=== PATIENT | male | born 1970 | race Caucasian/White ===

== ENCOUNTER 2022-09-19 12:40 | Outpatient (REF) | payer OTHER, MEDICAID, SELFPAY ==
--- NOTE | ~2022-09-19 | XR_ITS ---
EXAMINATION: XR BILATERAL KNEES CLINICAL INFORMATION: Reason for Exam M25.561 - Pain in right knee COMPARISON: None TECHNIQUE: 1 views of the bilateral knees. 2 views of the left knee. FINDINGS: RIGHT KNEE: No acute fracture or dislocation. Joint spaces are maintained. Soft tissues are unremarkable. LEFT KNEE: No acute fracture or dislocation. Significant mineralization within the tibiofemoral joint suggesting chondrocalcinosis. Small patellofemoral compartment osteophytes. No joint effusion. Soft tissues are unremarkable. XR/XR knee standing BI IMPRESSION: * No acute osseous abnormality. * Mild degenerative changes of the left knee, with significant mineralization within the tibiofemoral joint space suggesting chondrocalcinosis.
--- NOTE | ~2022-09-19 | XR_ITS ---
EXAMINATION: XR BILATERAL KNEES CLINICAL INFORMATION: Reason for Exam M25.561 - Pain in right knee COMPARISON: None TECHNIQUE: 1 views of the bilateral knees. 2 views of the left knee. FINDINGS: RIGHT KNEE: No acute fracture or dislocation. Joint spaces are maintained. Soft tissues are unremarkable. LEFT KNEE: No acute fracture or dislocation. Significant mineralization within the tibiofemoral joint suggesting chondrocalcinosis. Small patellofemoral compartment osteophytes. No joint effusion. Soft tissues are unremarkable. XR/XR knee LT 2V IMPRESSION: * No acute osseous abnormality. * Mild degenerative changes of the left knee, with significant mineralization within the tibiofemoral joint space suggesting chondrocalcinosis.
== END 2022-09-19 12:41 | disposition home or self-care (01) ==
LOC: HO.HOSX 12:40
PROVIDERS: Visit Provider Physician Assistant
DX: M17.12 Unilateral primary osteoarthritis, left knee (principal); M25.561 Pain in right knee
CPT/HCPCS: 20610; 73560; 73565; 99202; J1040

== ENCOUNTER 2022-10-17 11:55 | Outpatient (REF) | payer OTHER, SELFPAY | END 2022-10-17 11:56 | disposition home or self-care (01) | LOC: HO.HOSX 11:55 | PROVIDERS: Visit Provider Physician Assistant | DX: Z13.89 Encounter for screening for other disorder (principal) ==

== ENCOUNTER 2023-01-14 12:48 | Outpatient (REF) | payer OTHER, SELFPAY ==
--- NOTE | ~2023-01-14 | XR_ITS ---
EXAMINATION: XR SHOULDER, RIGHT CLINICAL INFORMATION: Pain in right shoulder COMPARISON: None available. TECHNIQUE: AP neutral, scapular Y, and axillary views of the right shoulder. FINDINGS: The bones are slightly demineralized. The bones are intact. No fracture. No dislocation. There is superior subluxation of the humeral head with respect to the glenoid consistent with chronic rotator cuff tear. A small osteophyte extends off the humeral head. There is decrease in the subacromial space which can be seen with impingement syndrome. The common clavicular and glenohumeral joint spaces are within normal limits. No abnormal soft tissue calcifications. Bilateral distraction rods project over the thoracic spine. XR/XR shoulder RT min 2V IMPRESSION: 1. Chronic rotator cuff tear. 2. Decreased subacromial space which can be seen with impingement syndrome. 3. No acute bony abnormality.
== END 2023-01-14 12:49 | disposition home or self-care (01) ==
LOC: HO.HOSX 12:48
PROVIDERS: Visit Provider Physician Assistant
DX: M25.511 Pain in right shoulder (principal); M12.811 Other specific arthropathies, not elsewhere classified, right shoulder; Z79.899 Other long term (current) drug therapy
CPT/HCPCS: 73030

== ENCOUNTER 2023-01-14 13:38 | Outpatient (AMB) | payer OTHER, SELFPAY ==
--- NOTE | 2023-01-14 14:02 | MHC.OFFVIS ---
Intake Vital Signs 01/14/23 14:05 Height 5 ft 8 in Weight 150 lb BMI 22.8 Intake Visit Reasons: New PRob- pain in the right shoulder Intake Note: Moisés zamarripa 53 year old male presents today for an evaluation of right shoulder pain. Patient reports pain presented about 2 years ago that has recently been getting worse. Hx of right RTC surgery about 5 years ago in [place]. Denies any recent injury. He has constant pain that will radiate down his arm. Numbness and tingling but states hx of carpal tunnel in right hand. Finds some relief with aspirin and salonpas patches. Allergies No Known Allergies Allergy (Verified 01/14/23 14:08) Medication List - Last Reconciled 01/14/23 by Candace Calloway PA-C bupropion HCl 150 mg PO QAM folic acid 1 mg PO DAILY furosemide 40 mg PO DAILY pantoprazole 40 mg PO BID rivaroxaban (Xarelto) 20 mg PO DAILY thiamine HCl (vitamin B1) 100 mg PO DAILY HPI New PRob- pain in the right shoulder HPI Details 53-year-old male who presents to the office today for evaluation of right shoulder pain for about 2 years. He states he has constant worsening right shoulder pain which radiates down to his arm. He also c/o numbness and tingling in his right hand which he attributes to his history of CTS. He finds mild relief with aspirin and Salonpas patches. He denies sustaining any recent injury. He has a history of right RTC surgery about 5 years ago in [place]. He works at a construction site. [facility] Medical History DVT (deep venous thrombosis) Factor 5 Leiden mutation, heterozygous Social History Patient Tobacco Use Status: Former Tobacco user Current occupational status: disabled Review of Systems Const All systems reviewed & are unremarkable except as noted in HPI and below Physical Exam Vital Signs: BMI result Body Mass Index 22.8 Extrem Other: Right shoulder normal to inspection. Forward flexion to 40, external rotation to 15. He does have some weakness with RTC strength testing with primary activation of periscapular region. NVI. Results Reviewed Results Reviewed: Xrays were obtained in the office today and personally reviewed by me of the left shoulder show migration of the humeral head Assessment & Plan Assessment & Plan (1) Rotator cuff arthropathy of right shoulder: Code(s): M12.811 - Other specific arthropathies, not elsewhere classified, right shoulder Plan We discussed options and because of his significant limited motion and history of RTC repair, we are going to order and MRI to further evaluation of the integrity of RTC. I did briefly explain to him some treatment options which could potentially include surgical intervention. He is content with this plan and will see us back once the scan is complete. Orders: Orders XR shoulder RT min 2V Today M25.511 - Pain in right shoulder MR shoulder RT wo con Today M12.811 - Other specific arthropathies, not elsewhere classified, right shoulder Patient Instructions: Scribed for Candace Calloway PA-C, by Rao Baker medical instrument cable fabricator, on 01/14/2023 at 1:30 PM EST. Candace Khanna PA-C, have personally reviewed and agree with the information entered by the scribe. Coding Level of Care Code Est Pt Level 3 (47124) Diagnoses Rotator cuff arthropathy of right shoulder M12.811
[2023-01-14 14:05] VITALS: BMI 22.8
== END 2023-01-14 14:42 | disposition home or self-care (01) ==
PROVIDERS: PCP Hospitalist; Visit Provider Physician Assistant
DX: M12.811 Other specific arthropathies, not elsewhere classified, right shoulder (principal)
CPT/HCPCS: 99214

== ENCOUNTER 2023-02-17 11:30 | Outpatient (RCR) | payer OTHER, SELFPAY | END 2023-03-25 13:42 | disposition home or self-care (01) | LOC: HO.OT 11:30 | PROVIDERS: PCP Hospitalist; Visit Provider Hospitalist | DX: G56.01 Carpal tunnel syndrome, right upper limb (principal) | CPT/HCPCS: 97110; 97165 ==

== ENCOUNTER 2023-03-17 18:01 | Outpatient (REF) | payer OTHER, SELFPAY ==
--- NOTE | ~2023-03-17 | MR_ITS ---
EXAMINATION: MR SHOULDER WITHOUT CONTRAST, RIGHT CLINICAL INFORMATION: M12.811 - Other specific arthropathies, not elsewhere classified, right. Right shoulder pain. COMPARISON: Radiograph dated 01/14/2023. TECHNIQUE: MRI of the shoulder without contrast was performed on a high-field scanner. FINDINGS: ROTATOR CUFF: Soft tissue anchors at the greater tuberosity are consistent with prior rotator cuff repair. There is a recurrent, complete, full-thickness, full-width tear of the supraspinatus and infraspinatus tendons measuring approximately 4.6 cm AP. The tendons are retracted up to 5.8 cm medially, just medial to the glenoid fossa. There is [id number] associated atrophy of the supraspinatus and infraspinatus muscles with grade 3 fatty replacement. A high-grade partial-thickness articular-sided tear of the subscapularis tendon measures approximately 3 x 1.6 cm (longitudinal by craniocaudal), sparing a thin band of intact bursal-sided fibers as well as a few inferior fibers at the lesser tuberosity insertion. This tear involves greater than two-thirds of the tendon cross-section and extends through the biceps duc at the humeral attachment. No significant subscapularis muscle atrophy. Teres minor tendon is intact, though there is mwgb-[id number] teres minor muscle atrophy and grade 2 fatty replacement. Deltoid muscle appears relatively well preserved. BICEPS: There is medial subluxation of the biceps tendon at the groove entrance with associated tendinosis and partial tearing. CORACOACROMIAL ARCH: The undersurface of the acromion is remodeled, potentially the result of a prior acromioplasty. No appreciable superimposed subacromial spur. [id number] acromioclavicular osteoarthritis. LABRUM/CAPSULE: The glenoid labrum is degenerated superiorly. There is a degenerative tear of the anterosuperior labrum. Axillary pouch is unremarkable. GLENOHUMERAL JOINT/MARROW: Moderate-sized marginal osteophytes at the humeral head and, to a lesser extent, the glenoid. Nonuniform chondral thinning is most pronounced at the glenoid superiorly with probable chronic osseous fragmentation at the superior glenoid rim. There is cephalad subluxation of the humeral head with moderate nonuniform chondral thinning, most pronounced superomedially. Subcortical cystic change and edema signal are present at the greater tuberosity. MR/MR shoulder RT wo con IMPRESSION: 1. Recurrent, complete, full-thickness tear of the supraspinatus and infraspinatus tendons with iedutnfu-[id number] associated muscle atrophy and fatty replacement. 2. High-grade partial-thickness articular-sided tear of the subscapularis tendon involving greater than two-thirds of the tendon cross-section. 3. Medial subluxation of the biceps tendon with associated tendinosis and partial tearing. 4. Nxjs-jn-pcwnplnl glenohumeral and acromioclavicular osteoarthritis.
== END 2023-03-17 18:02 | disposition home or self-care (01) ==
LOC: HO.MRI 18:01
PROVIDERS: PCP Hospitalist; Visit Provider Physician Assistant
DX: M12.811 Other specific arthropathies, not elsewhere classified, right shoulder (principal)
CPT/HCPCS: 73221

== ENCOUNTER 2023-05-18 11:12 | Outpatient (AMB) | payer OTHER, SELFPAY ==
--- NOTE | 2023-05-18 11:15 | MHC.OFFVIS ---
Intake Vital Signs 05/18/23 11:29 Height 5 ft 8 in Weight 159 lb 2 oz BMI 24.2 BP 108/61 Blood Pressure Location Lt brachial Position Sitting Pulse 97 Intake Visit Reasons: Re-Exc malignant melanoma left tricep Intake Note: This patient presents for an assessment for re-excision malignant melanoma left triceps. Pt c/o; had a lesion on the left upper arm removed a couple months ago by Dermatology and was refer here, unsure why Educational Fundraising Director Required: No Accompanied by: Self / Same As Patient Allergies No Known Allergies Allergy (Verified 05/18/23 11:24) Medication List - Last Reconciled 05/20/23 by Boston Wing MD bupropion HCl 150 mg PO QAM folic acid 1 mg PO DAILY furosemide 40 mg PO DAILY pantoprazole 40 mg PO BID rivaroxaban (Xarelto) 20 mg PO DAILY thiamine HCl (vitamin B1) 100 mg PO DAILY HPI Re-Exc malignant melanoma left tricep HPI Details 53M referred for reexcision of a melanoma. He had undergone shave biopsy of a skin lesion last December, the left triceps area and this was a melanoma in Situ. He had been referred by his director medical science for wider excision which she under went last March, . 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 His director medical science stated that the excised area was not the same area that had been biopsied so he was referred to me for wider excision of the correct site. The patient is uncertain as to why he is being referred to me. He had been seeing a surgeon for this same lesion up until April, but he says that he states that his health insurance does not cover that surgeon anymore. He says that the excision site has healed very well. [facility] Medical History Melanoma in situ DVT (deep venous thrombosis) Factor 5 Leiden mutation, heterozygous Surgical History History of left knee surgery History of arthroplasty of right shoulder History of laparoscopic cholecystectomy History of colonoscopy History of back surgery Family History Mother Breast cancer Intestines cancer Social History Patient Tobacco Use Status: Former Tobacco user Current occupational status: disabled Review of Systems Const Denies chills and Denies fever(s) Card Denies chest pain, Denies dyspnea and Denies dyspnea on exertion Resp Denies cough, Denies dyspnea and Denies dyspnea on exertion GI Denies hematochezia and Denies change in bowel habits Denies hematuria and Denies difficulty urinating Musc Denies back pain and Denies limited range of motion Neuro Denies focal weakness and Denies convulsions Psych Denies depression and Denies mood swings Physical Exam Vital Signs: Last Vital Signs Pulse 97 05/18/23 11:29 BP 108/61 05/18/23 11:29 BMI result Body Mass Index 24.2 Const General: comfortable and no acute distress Orientation/consciousness: patient oriented x3 Neck Neck: Yes no lymphadenopathy Resp Auscultation: clear to auscultation bilaterally Cardio Rhythm: regular rhythm GI Palpation (GI): Soft to palpation, nontender and no guarding Neuro General: patient oriented x3 Extrem Other: There is note of a surgical scar that is well-healed on the triceps area of the left upper arm, no lesions seen on this area, no induration Assessment & Plan Assessment & Plan (1) Melanoma in situ: Code(s): D03.9 - Melanoma in situ, unspecified Plan: I was able to get hold of his pathologist in [place]. Apparently, he had a shave biopsy of skin lesion on the left distal triceps area last December 2022. The path report showed a malignant melanoma in Situ. He was referred to a surgeon to have wider excision but he had no showed at some point. He eventually was able to have excision last April, but the path report showed lichenoid actinic keratosis with no melanocytic proliferation. The director medical science felt that the excised area was not where the biopsy site was. He was therefore referred to me for excision of the biopsy site. I explained to him the technique of excision. I reviewed the risks including but not limited to bleeding, infections and poor healing. This will be done under monitored anesthesia care so that a wider excision can be. We will get at least a 5-10 mm margins around the biopsy site. I am uncertain as to where the exact biopsy site is so will be marked by his director medical science today before the date of the surgery He understands the plan. He initially stated that he wants to do the in the springtime as he plans to leave next week on [place] I told him that I would recommend having this done before that and as well as possible as this is a melanoma in situ and there is risk of progression and metastasis. Coding Level of Care Code New Pt Level 4 (22828) Diagnoses Melanoma in situ D03.9
[2023-05-18 11:29] VITALS: BP 108/61; PULSE 97; BMI 24.2
== END 2023-05-18 11:36 | disposition home or self-care (01) ==
PROVIDERS: PCP Hospitalist; Referring Provider Dermatology; Visit Provider Surgery
DX: D03.9 Melanoma in situ, unspecified (principal)
CPT/HCPCS: 99204; 99214

== ENCOUNTER → 2023-05-18 11:12 | Outpatient (BNVA) | payer OTHER, MEDICAID, SELFPAY | PROVIDERS: PCP Hospitalist; Referring Provider Dermatology; Visit Provider Surgery | DX: D03.9 Melanoma in situ, unspecified (principal) | CPT/HCPCS: 99202 ==

== ENCOUNTER 2023-05-22 07:50 | Day surgery (SDC) | payer OTHER, MEDICAID, SELFPAY ==
--- NOTE | 2023-05-21 11:51 | P.CONAN_ITS ---
Documented by User: Marci Clements NP 05/21/23 11:52 HPI - Anesthesia Eval Consult details Narrative: 53yo M for Left Wide Excision of melanoma left arm Xarelto for DVT, Factor V PMFSH Active Problems Active Problems: All Active Problems (Updated 05/18/23 @ 16:32 by Boston Wing MD) Melanoma in situ (Acute) Rotator cuff arthropathy of right shoulder (Acute) Osteoarthritis of left knee (Acute) Past Medical History Medical History Melanoma in situ DVT (deep venous thrombosis) Factor 5 Leiden mutation, heterozygous Family History Family History Mother Breast cancer Intestines cancer Surgical History Surgical History History of left knee surgery History of arthroplasty of right shoulder History of laparoscopic cholecystectomy History of colonoscopy History of back surgery Social History Social History Patient Tobacco Use Status: Former Tobacco user Advance Directives: No Advance Directives Information Provided: Yes Current occupational status: disabled Meds Allergies Allergy/AdvReac Type Severity Reaction Status Date / Time No Known Allergies Allergy Verified 05/18/23 11:24 Home Medications Medication Instructions Recorded Confirmed Last Taken Type bupropion HCl 150 mg 24 hr tablet, 150 mg PO QAM 09/19/22 05/20/23 Unknown History extended release folic acid 1 mg tablet 1 mg PO DAILY 09/19/22 05/20/23 Unknown History furosemide 40 mg tablet 40 mg PO DAILY 09/19/22 05/20/23 Unknown History rivaroxaban 20 mg tablet (Xarelto) 20 mg PO DAILY 09/19/22 05/20/23 Unknown History thiamine HCl (vitamin B1) 100 mg 100 mg PO DAILY 09/19/22 05/20/23 Unknown History tablet pantoprazole 40 mg tablet,delayed 40 mg PO BID 01/14/23 05/20/23 Unknown History release Assessment and Plan Assessment Anesthesia Assessment: Chart Reviewed Documented by User: Philip Restrepo MD 05/22/23 08:18 [facility] Past Medical History Medical History Melanoma in situ DVT (deep venous thrombosis) Factor 5 Leiden mutation, heterozygous Family History Family History Mother Breast cancer Intestines cancer Family history of problems with anesthesia: No Surgical History Surgical History History of left knee surgery History of arthroplasty of right shoulder History of laparoscopic cholecystectomy History of colonoscopy History of back surgery History of Problems with Anesthesia: No Social History Social History Patient Tobacco Use Status: Former Tobacco user Advance Directives: No Advance Directives Information Provided: Yes Current occupational status: disabled Meds Allergies Allergy/AdvReac Type Severity Reaction Status Date / Time No Known Allergies Allergy Verified 05/18/23 11:24 Home Medications Medication Instructions Recorded Confirmed Last Taken Type bupropion HCl 150 mg 24 hr tablet, 150 mg PO QAM 09/19/22 05/20/23 Unknown History extended release folic acid 1 mg tablet 1 mg PO DAILY 09/19/22 05/20/23 Unknown History furosemide 40 mg tablet 40 mg PO DAILY 09/19/22 05/20/23 Unknown History rivaroxaban 20 mg tablet (Xarelto) 20 mg PO DAILY 09/19/22 05/20/23 Unknown History thiamine HCl (vitamin B1) 100 mg 100 mg PO DAILY 09/19/22 05/20/23 Unknown History tablet pantoprazole 40 mg tablet,delayed 40 mg PO BID 01/14/23 05/20/23 Unknown History release Exam Airway Mallampati Class: II TM Dist: >3cm Neck ROM: Limited Heart: rrr Lungs: cta Assessment and Plan Assessment Anesthesia Assessment: Anesthesia Plan Discussed Final Anesthetic Review Family History of Problems with Anesthesia: No History of Problems with Anesthesia: No NPO: Yes ASA Class: II Final Preanesthetic Review: No Changes in Pt Med Stat, Meds/Allgs Chart Reviewed, Consent Obtained/Reviewed and Anes Risks/Benef Reviewed Patient Risk: Intermediate Procedure Risk: Low Anesthetic Plan Anesthetic Plan: MAC: and Agree w/ Assess. and Plan Disposition: Standard PACU
[2023-05-22 09:17] VITALS: BMI 23.9
--- NOTE | 2023-05-22 09:53 | MHC.SHP ---
Pre-Procedural Eval Section A Date of Service: 05/22/23 The patient is an INPATIENT: No Changes since office visit: No Cold of Flu in the past 2 weeks, No New Medical Problems, No Changes in Medication and No Patient answered all questions The History & Physical has been completed within 30 days and I have reviewed it.: Yes Section B Chief Complaint: Melanoma in situ, unspecified Allergies: Allergies Allergy/AdvReac Type Severity Reaction Status Date / Time No Known Allergies Allergy Verified 05/18/23 11:24 Plan I have reviewed the history and physical and performed a pertinent physical examination on my patient. No changes have occurred unless specified. Time Spent With Patient Time: Total time managing care of this patient today ____ minutes.
--- NOTE | 2023-05-22 11:06 | P.OP_ITS ---
Operative Note Operative Note Date of Service: 05/22/23 Narrative: Preop diagnosis: Melanoma in Situ, left upper arm Postop diagnosis: The same Procedure: Wide excision, melanoma in Situ, left upper arm Surgeon: Boston Wing MD assistant gm of content & delivery: SRIDHAR Hernandez The patient is a 53-year-old male who had a shave biopsy of lesion in the left upper arm last December, with this manager system. This turned out to be a melanoma in Situ. Was referred to a surgeon for wider excision. This was not done until April,. However, according to the manager system, the shave biopsy site was not the 1 that had been excised by the surgeons so he was referred to me for wide excision of the correct area. This area was marked by the manager system yesterday He understood the technique of the planned procedure as well as the risks, benefits, and alternatives He was brought to the operating room. He was placed in supine position, slightly rotated to the right. The left arm was pulled to the right as well to expose the posterior lateral aspect of the upper arm where the area had been marked by the manager system . A surgical time-out had been done. The patient received cefazolin 2 g IV preoperatively. This area was prepped and draped. Lidocaine 1% was used for local anesthesia. I am made an elliptical incision around this marked area using blade 15. I maintain a 5-10 mm margin of skin around the biopsy site. This was carried down with electrocautery through the full-thickness of the skin and subcutaneous fat. We excised subcutaneous fat just above the level of the fascia of the muscle. I applied sutures to orient the specimen at the proximal and medial margins The excised area was about 7 cm by 4 cm in dimension and included the skin and subcutaneous fat . I used electrocautery from his stasis. Once hemostasis was confirmed, I proceeded to then apply ice interrupted Polysorb 3-0 sutures to the subcutaneous layer. The skin was closed with simple interrupted nylon 3-0 sutures. The area was then infiltrated with Marcaine 0.5% for postop analgesia. Dressings were applied. The upper arm was wrapped with Mike roll. The procedure was then completed The patient tolerated procedure well. There were no immediate complications. Initial and final counts of sponges and instruments were correct. Estimated blood loss was about 5 cc The patient was then transferred to the recovery room with stable vital signs Primary Cutaneous Melanoma Original Breslow thickness of the lesion: Melanoma in situ (MIS) Clinical margin from the edge of the lesion or the prior excision scar: Mohs micrographic surgery with ___cm initial margin Depth down to the fascia; if not down to the fascia, then document why: Yes General Surg. - Synoptic Notes Primary Cutaneous Melanoma Original Breslow thickness of the lesion: Melanoma in situ (MIS) Clinical margin from the edge of the lesion or the prior excision scar: Mohs micrographic surgery with ___cm initial margin Depth down to the fascia; if not down to the fascia, then document why: Yes
[2023-05-22 11:16] VITALS: BP 121/75; PULSE 81; RESP 16; TEMP 36.6; O2SAT 99
[2023-05-22 11:30] VITALS: BP 129/78; PULSE 79; RESP 16; O2SAT 98
[2023-05-22 11:45] VITALS: BP 119/73; PULSE 78; RESP 16; O2SAT 99
[2023-05-22 12:00] VITALS: BP 112/76; PULSE 77; RESP 16; TEMP 37.1; O2SAT 96
== END 2023-05-22 12:25 | disposition home or self-care (01) ==
PROVIDERS: PCP Hospitalist; Visit Provider Surgery
PROC: (CPT 24071; principal; 2023-05-22 10:10)
DX: D03.9 Melanoma in situ, unspecified (principal); D68.51 Activated protein C resistance; Z86.718 Personal history of other venous thrombosis and embolism; Z87.891 Personal history of nicotine dependence; Z79.01 Long term (current) use of anticoagulants; Z79.899 Other long term (current) drug therapy
CPT/HCPCS: 24071; 88304; 88305; 88342; J0690; J1100; J2250; J2405; J2704; J2795

== ENCOUNTER → 2023-05-22 07:50 | Outpatient (BNV) | payer OTHER, SELFPAY | PROVIDERS: PCP Hospitalist; Visit Provider Surgery | DX: D22.62 Melanocytic nevi of left upper limb, including shoulder (principal) | CPT/HCPCS: 24071 ==

== ENCOUNTER 2024-03-02 15:21 | Outpatient (REF) | payer MEDICARE, SELFPAY ==
[2024-03-02 17:37] LABS: Anion Gap 14 (12-20); Blood Urea Nitrogen 9 mg/dL (9-16); Carbon Dioxide 29 mmol/L (22-29); Chloride 102 mmol/L (96-108); Estimated Glomerular Filt Rate > 60; Glucose Random 79 mg/dL (60-115); Potassium 3.5 mmol/L (3.3-5.1); Sodium 141 mmol/L (135-145)
[2024-03-02 18:00] LABS: Erythrocyte Sedimentation Rate 1 MM/HR (0-15)
[2024-03-03 05:41] LABS: HIV AB/AG Nonreactive (Nonreactive); HIV Num 1 0.05 S/CO (0.00-0.99); Syphilis Screen Nonreactive (Nonreactive)
[2024-03-03 16:53] LABS: Lyme Abs Screen <0.90 index
[2024-03-03 20:29] LABS: IgA 313 mg/dL (47-310); IgG 852 mg/dL (600-1640); IgM 41 mg/dL (50-300)
[2024-03-04 11:14] LABS: Anti Nuclear Antibody Screen NEGATIVE (NEGATIVE)
== END 2024-03-02 15:22 | disposition home or self-care (01) ==
LOC: HO.LAB 15:21
PROVIDERS: PCP Hospitalist; Visit Provider Psychiatry & Neurology Neurology
DX: G62.9 Polyneuropathy, unspecified (principal)
CPT/HCPCS: 36415; 80048; 82784; 85652; 86038; 86334; 86617; 86618; 86780; 87389

== ENCOUNTER → 2024-04-15 09:23 | Day surgery (SDC) | payer MEDICARE, SELFPAY ==
[2024-04-15 09:54] VITALS: BMI 23.7
--- NOTE | 2024-04-15 10:09 | PC.NURSE ---
Pt disclosed on intake that he was not instructed to stop his Xarelto. Louie Barrientos was notified and came to bedside to instruct patient that he will need to reschedule.
== END ==
LOC: HO.SSS 09:24
PROVIDERS: PCP Hospitalist; Visit Provider Psychiatry & Neurology Neurology
DX: G61.81 Chronic inflammatory demyelinating polyneuritis (principal); Z53.09 Procedure and treatment not carried out because of other contraindication; Z79.01 Long term (current) use of anticoagulants

== ENCOUNTER → 2024-04-20 11:27 | Day surgery (SDC) | payer MEDICARE, SELFPAY ==
[2024-04-20 11:55] VITALS: BP 110/64; PULSE 68; RESP 15; TEMP 36.4; O2SAT 97
[2024-04-20 11:58] VITALS: BMI 23.3
== END ==
LOC: HO.SSS 11:27
PROVIDERS: Physician Assistant Surgical; PCP Hospitalist; Visit Provider Psychiatry & Neurology Neurology
PROC: 009U3ZZ Drainage of Spinal Canal, Percutaneous Approach (ICD-10-PCS; CPT 62270; principal; 2024-04-20 13:00)
DX: G61.81 Chronic inflammatory demyelinating polyneuritis (principal); Z53.09 Procedure and treatment not carried out because of other contraindication; Z79.01 Long term (current) use of anticoagulants

== ENCOUNTER 2024-04-22 11:53 | Day surgery (SDC) | payer MEDICARE, SELFPAY ==
--- NOTE | ~2024-04-22 | FL_ITS ---
FLUOROSCOPIC LUMBAR PUNCTURE Indication: Chronic inflammatory demyelinating polyneuropathy Risks and benefits and possible complications were discussed with the patient and the consent form was signed. Patient was placed prone on the fluoroscopy table. The back was prepped and draped in routine sterile fashion. Betadine was used as a skin antiseptic. Utilizing fluoroscopic guidance, the L5-S1 interlaminar space was accessed with a 22 gague Danisha spinal needle and clear CSF fluid obtained. Opening pressure was 32 cm H2O in the prone position. 8 cc of fluid was sent for analysis. The needle was removed without immediate complications. Total fluoroscopy time: 0.6 min FL/FL guided lumbar puncture LP Impression: Successful fluoroscopic guided lumbar puncture at L5-S1. Opening pressure was 32 cm H2O in the prone position. This procedure was performed by Dick Barrientos PA-C and supervised by Dr. Cardoso. Electronically signed by: Chon Cardoso MD 04/22/2024 04:01 PM [facility]
[2024-04-22 12:11] VITALS: BP 131/70; PULSE 74; RESP 18; TEMP 37; O2SAT 97; BMI 23.4
[2024-04-22 14:02] VITALS: BP 119/73; PULSE 75; RESP 16; TEMP 36.2; O2SAT 95
[2024-04-22 14:13] VITALS: BP 148/86; PULSE 81; RESP 16
[2024-04-22 14:37] LABS: CSF Appearance Clear, Colorless; CSF Tube # 3
[2024-04-22 14:45] VITALS: BP 136/84; PULSE 71; RESP 16; TEMP 36.3; O2SAT 96
[2024-04-22 14:57] LABS: Oligoclonal Serum Yes
[2024-04-22 15:00] LABS: Glucose CSF 69 mg/dL; Total Protein CSF 61.3 mg/dL (15-45)
[2024-04-22 16:20] LABS: Appearance CSF CLEAR; CSF Tube # 1; Color CSF COLORLESS
[2024-04-22 16:26] LABS: CSF Monos 50 %; Lymphocytes CSF 50 %; Red Blood Cell CSF 7 MM*3; White Blood Cell CSF 1 MM*3
[2024-04-22 16:35] LABS: Appearance CSF CLEAR; CSF Tube # 4
[2024-04-22 16:36] LABS: Color CSF COLORLESS; Red Blood Cell CSF 0 MM*3; White Blood Cell CSF 0 MM*3
[2024-04-26 21:58] LABS: Albumin, CSF 39.5 mg/dL (8.0-42.0); IgG 558 mg/dL (600-1640); IgG Synthesis Rate 4.3 mg/24 h (-9.9-3.3); IgG, CSF 3.7 mg/dL (0.8-7.7)
[2024-04-27 19:19] LABS: Oligoclonal Banding Absent (Absent)
--- OUTSIDE RECORDS SUMMARY | 2024-04-29 11:54 | XMS_ITS ---
Author Organization [facility] Address [address] [facility] [address] [place] [address] Care Team Providers Care Visual Merchandiser Name Role Phone MANPREET LORENZO Primary Care Provider Curtis Quinn Unavailable [phone] REASON FOR VISIT [facility] follow-up hospitalization Medications Medication SIG (Take, Route, Frequency, Duration) Notes Start Date End Date Status predniSONE 20 MG 1 tablet Orally Once a day for 7 days 04/19/2024 Active tiZANidine HCl 4 MG 1 tablet at bedtime as needed Orally Once a day for 30 days 04/19/2024 Active buPROPion HCl ER (XL) 150 MG 1 tablet in the morning Orally Once a day for 90 days Active Mirtazapine 7.5 MG 1 tablets at bedtime Orally Once a day for 30 days 03/22/2024 Active ARIPiprazole 20 MG TAKE 1 TABLET BY SABRINA TH EVERY DAY FOR 30 DAYS for 90 Active Lovenox 120 MG/0.8ML Inject subcutaneous ly Once a day for 30 days 01/22/2024 Not-Takin g Furosemide 40 MG TAKE 1 TABLET BY SABRINA TH EVERY DAY FOR 30 DAYS for 90 Active Pantoprazole Sodium 40 MG TAKE 1 TABLET BY MOUTH TWICE A DAY FOR 30 DAYS for 90 days Active Osteo Bi-Flex Joint Shield Active Gabapentin 600 MG 1 capsule Orally twi ce a day for 90 days 01/28/2023 Active Xarelto 20 MG 1 tablet with food O rally Once a day Active Lovenox Not-Taking Problems Problem Type SNOMED Code ICD Code Onset Dates Problem Status W/U Status Risk Notes Problem 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 vein (I82.531) Active confirmed Problem Sciatica (28278955) Sciatica of right side (M54.31) Active confirmed Vital Signs Temperature 98.4 degrees Fahrenheit 04/19/20 24 Oximetry 97 % 04/19/2024 Heart Rate 67 /min 04/19/2024 Blood pressure systolic 120 mm Hg 04/19/20 24 Blood pressure diastolic 80 mm Hg 024 Weight 155.5 lbs 04/19/2024 BMI 23.64 kg/m2 04/19/2024 Height 68 in 04/19/2024 Encounters Encounter Location Date Provider Diagnosis [facility] [address] [address] 04/19/2024 Curtis Quinn 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 vein I82.531 and Sciatica of right side M54.31 Assessments Encounter Date Diagnosis (ICD Code) Assessment Notes Treatment Notes Treatment Clinical Notes 04/19/2024 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 vein (ICD-10 - I82.531) 04/19/2024 Sciatica of right side (ICD-10 - M54.31) Plan Of Treatment Medication Medication Name Sig Start Date Stop Date Notes predniSONE 20 MG 1 tablet Orally Once a day for 7 days 05/2024 tiZANidine HCl 4 MG 1 tablet at bedtime as needed Orally Once a day for 30 days 04/19/2024 Next Appt Details Follow Up: next appt, Reason : Provider Name:MANPREET LORENZO , 06/22/2024 01:00:00 PM, [address] [place] [address], [phone], Provider Name:MANPREET LORENZO , 09/28/2024 02:00:00 PM, [address] [place] [address], [phone], Progress Notes * Moisés ROBERTSONDOB:1970 ( 54 yo M)Acc No.[id number]:04/19/2024 Patient:?Moisés ROBERTSON Provider:?Curtis Quinn :1970???Age:54 Y???Sex:Male Aubrey e:04/19/2024 Address:[address] [place] [address] [phone] Pcp:MANPREET LORENZO Subjective: * Chief Complaints: * ???[facility] follow-up loyda feliciano * HPI: ???Internal Medicine:?Moisés is 54 years old gentleman with generalized anxiety disorder/major depression/mood disorder, factor V Leiden deficiency currently on Xarelto, alcohol dependence, acid reflux and osteoarthritis and neuropathy is here?for follow [facility] ER follow-up. Moisés presented to the ER consecutively, the first time it was for right leg swelling with pain. U/S was performed and it showed chronic DVTwithin popliteal veins and deep calf veins. He was given Vicoden and patient was discharged. Then couple days after presented with right calf pain radiating to uppert thigh. Physical examination was remarkable for straight leg raise test. Patient was diagnosed with siatica pain. Discharged with Methocarbamol. He has a lumbar puncture tomorrow at [facility] to r.o MS. He follows with Dr. Maddox. Per record review, EMG of the LE has been considered by neurologist given ongoing neuropathy and spasms.?He states that he continues to have a radicular pain shooting up the calf to the right hip.??He denies any other active issues or concerns. * ROS:?General/Constitutional:?Denies?Fatigue.?Denies?Fever.?Denies?Lightheadedness.?Denies?Weight gain.?Weight loss?denies.?Neurologic:?Denies?Dizziness.?Denies?Headache.?Denies?Memory loss.?Tingling/Numbness?admits, in the right calf, constant.?Tremor?denies, .?Ophthalmologic:?Denies?Diminished visual acuity.?Discharge?denies.?Denies?Eye problems.?ENT:?Nasal Congestion?Denies.?Denies?Difficulty swallowing.?Denies?Snoring.?Cardiovascular:?Denies?Chest pain at rest.?Denies?Chest pain with exertion.?Denies?Difficulty laying flat.?Denies?Fluid accumulation in the legs.?Denies?Palpitations.?Respiratory:?Denies?Cough.?Denies?Shortness of breath at rest.?Denies?Wheezing.?Gastrointestinal:?Abdominal pain?denies.?Denies?Blood in stool.?Denies?Change in bowel habits.?Genitourinary:?Denies?Difficulty urinating.?Denies?Frequent urination.?Musculoskeletal:?myalgias?Denies.?Joint Swelling?Denies.?Patient complaining of?low back pain.?Pain in shoulder(s)?denies.?Endocrine:?Denies?Excessive thirst.?Denies?Frequent urination.?Skin:?Denies?Hives.?Denies?Mole(s),?no moles of concern.?Psychiatric:?Anxiety?denies.?Denies?Depressed mood.?Denies?Difficulty sleeping,?admits.?Substance abuse?denies.?Urology:?blood in urine?denies.?difficulty urinating?denies.? * Medical History:? * Medications:?TakingXarelto 2 0 MG Tablet 1 tablet with food Orally Once a day Osteo Bi-Flex Joint Shield Gabapentin 600 MG Tablet 1 capsule Orally twice a day Furosemide 40 MG Tablet TAKE 1 TABLET BY MOUTH EVERY DAY FOR 30 DAYS Pantoprazole Sodium 40 MG Tablet Delayed Release TAKE 1 TABLET BY MOUTH TWICE A DAY FOR 30 DAYS Mirtazapine 7.5 MG Tablet 1 tablets at bedtime Orally Once a day ARIPiprazole 20 MG Tablet TAKE 1 TABLET BY MOUTH EVERY DAY FOR 30 DAYS buPROPion HCl ER (XL) 150 MG Tablet Extended Release 24 Hour 1 tablet in the morning Orally Once a day Taking Xarelto 20 MG Tablet 1 tablet with food Orally Once a day Taking Osteo Bi-Flex Joint Shield Taking Gabapentin 600 MG Tablet 1 capsule Orally twice a day Taking Furosemide 40 MG Tablet TAKE 1 TABLET BY MOUTH EVERY DAY FOR 30 DAYS Taking Pantoprazole Sodium 40 MG Tablet Delayed Release TAKE 1 TABLET BY MOUTH TWICE A DAY FOR 30 DAYS Taking Mirtazapine 7.5 MG Tablet 1 tablets at bedtime Orally Once a day Taking ARIPiprazole 20 MG Tablet TAKE 1 TABLET BY MOUTH EVERY DAY FOR 30 DAYS Taking buPROPion HCl ER (XL) 150 MG Tablet Extended Release 24 Hour 1 tablet in the morning Orally Once a day Not-TakingLovenox Lovenox 120 MG/0.8ML Solution Prefilled Syringe Inject subcutaneously Once a day Not-Taking Lovenox Not-Taking Lovenox 120 MG/0.8ML Solution Prefilled Syringe Inject subcutaneously Once a day Objective: * Vitals:?Temp:98.4F, Oxygen s at %:97%, HR:67/min, BP:120/80mm Hg, Wt:155.5lbs, BMI:23.64Index, Ht: 68 in. * Examination: ???general exam: ?GENERAL APPEARANCE:?alert, well hydrated, well nourished, in no distress.?HEAD:?normocephalic , atraumatic.?EYES:?pupils equal, round, reactive to light and accommodation , extraocular movement intact (EOMI).?EARS:?hearing intact.?NOSE:?nares patent, no swelling of turbinates, no congestion.?NECK/THYROID:?normal , no thyromegaly, no palpable nodules, trachea midline, no carotid bruit , no cervical lymphadenopathy??.?SKIN:?good turgor , no rashes , no suspicious lesions on exposed skin surfaces.?.?HEART:?S1, S2 , regular rate and rhythm, no murmurs, rubs, gallops, no jugular venous distention.?LUNGS:?clear to auscultation bilaterally , no wheezes, rales, rhonchi.?CHEST:?normal shape and expansion, , normal anteroposterior (AP) diameter.?MUSCULOSKELETAL:?bilateral atrophy of dorsal interosseous muscles, there is no swelling, erythema right LE Crepitus positive. Restricted ROM of low back with pain elicited in low right back..?EXTREMITIES:?good capillary refill in nail beds ,no clubbing, cyanosis no swelling, erythema of the right calf..?NEUROLOGIC:?cognitive exam grossly normal , alert and oriented , nonfocal,decreased sensation in the left lower extremity.?Psychiatry?normal affect, engaged in conversation, good eye contact.? Assessment: * Assessment: 1.?Chronic embolism and thro mbosis of right popliteal vein - I82.531 (Primary)???2.?Sciatica of right side - M54.31??? Moisés is 54 years old gentlem an with generalized anxiety disorder/major depression/mood disorder, factor V Leiden deficiency currently on Xarelto, alcohol dependence, acid reflux and osteoarthritis and neuropathy is here for follow [facility] ER follow-up. Plan as follows: Chronic Embolism of the right popliteal vein: - Currently on Xarelto. U/S in the hospital was performed showed a chronic DVT. Patient was discharged Vicodin to be taken as needed for pain. PE is unremarkable. Sciatica of the right side: - Restricted low back ROM. No tenderness to palpate. Negative straight leg raise test. Decreased sensation in the right calf. No edema, normal dorsal pedis and posterior tibialis pulse. He follows with Neurologist. EMG of lower extremity is considered by neurology. He also has an established orthopedic. As for now, Given low back pain with radiculopathy. I have started patient on prednisone and Tizanidine. Advised patient on following with his Orthopedic for further management/imaging. I have rendered the services for this patient under direct supervision of Dr. Lorenzo, who did not see the patient but was available upon request Plan: * Treatment: * Procedure Codes:?3079F DIAST BP 80-89 MM [id number] SYST BP LT 130 MM HG * Follow Up:?next appt * * Sign off status: Completed true * Provider:?Curtis Quinn Date:?04/19/20 24 Generated for Rafi albrecht/Hang/Collin on:?04/29/2024 11:54 AM EST History and Physical Notes * Examination Category Sub-Category Detail Notes general exam GENERAL APPEARANCE: alert, well hydrated, well nourished, in no distress HEAD: normocephalic , atra umatic EYES: pupils equal, round, reactive to light and accommodation , extraocular movement intact (EOMI) EARS: hearing intact NOSE: nares patent, no swe lling of turbinates, no congestion NECK/THYROID: normal , no thyromeg yaneth, no palpable nodules, trachea midline, no carotid bruit , no cervical lymphadenopathy HEART: S1, S2 , regular rat e and rhythm, no murmurs, rubs, gallops, no jugular venous distention CHEST: normal shape and exp ansion, , normal anteroposterior (AP) diameter LUNGS: clear to auscultatio n bilaterally , no wheezes, rales, rhonchi ABDOMEN: NEUROLOGIC: cognitive exam gross ly normal , alert and oriented , nonfocal, decreased sensation in the left lower extremity SKIN: good turgor , no rosmery hes , no suspicious lesions on exposed skin surfaces. EXTREMITIES: good capillary refil l in nail beds , no clubbing, cyanosis no swelling, erythema of the right calf. MUSCULOSKELETAL: bilateral atrophy of dorsal interosseous muscles, there is no swelling, erythema right LE Crepitus positive. Restricted ROM of low back with pain elicited in low right back. LYMPH NODES: Psychiatry normal affect, engag ed in conversation, good eye contact
--- OUTSIDE RECORDS SUMMARY | 2024-04-29 11:54 | XMS_ITS ---
Author Organization [facility] Address [address] [place] [address] Care Team Providers Care Director Of Security Name Role Phone MANPREET LORENZO Primary Care Provider REASON FOR VISIT Mirtazapine rx Encounters Encounter Location Date Provider Diagnosis [facility] [address] [facility] [address] [place] [address] 04/08/2024 MANPREET LORENZO Plan Of Treatment Next Appt Details Provider Name:MANPREET LORENZO , 06/22/2024 01:00:00 PM, [address] [place] [address], [phone], Provider Name:MANPREET LORENZO , 09/28/2024 02:00:00 PM, [address] [place] [address], [phone], Progress Notes * Moisés ROBERTSONDOB:1970 ( 54 yo M)Acc No.[id number]:04/08/2024 Patient:?Moisés ROEBRTSON :1970???Age:54 Y???Sex:Male Address:[address] [place] [address] * true * Date:? Generated for Printi ambrocio/Hang/eTransmitting on:?04/29/2024 11:54 AM EST
--- OUTSIDE RECORDS SUMMARY | 2024-04-29 11:54 | XMS_ITS ---
Author Organization [facility] Address [address] [place] [address] Care Team Providers Care Primary Substance Abuse Counselor Name Role Phone MANPREET LORENZO Primary Care Provider REASON FOR VISIT Medication request Encounters Encounter Location Date Provider Diagnosis [address] [address] 04/18/2024 MANPREET LORENZO Plan Of Treatment Next Appt Details Provider Name:MANPREET LORENZO , 06/22/2024 01:00:00 PM, [address] [place] [address], [phone], Provider Name:MANPREET LORENZO , 09/28/2024 02:00:00 PM, [address] [place] [address], [phone], Progress Notes * Moisés ROBERTSONDOB:1970 ( 54 yo M)Acc No.[id number]:04/18/2024 Patient:?Moisés ROBERTSON :1970???Age:54 Y???Sex:Male Address:[address] [place] [address] * true * Date:? Generated for Sandeepi ambrocio/Hang/eTransmitting on:?04/29/2024 11:54 AM EST
--- OUTSIDE RECORDS SUMMARY | 2024-04-29 11:55 | XMS_ITS | Continuity of Care Document ---
Author Organization [facility] Address [address] [place] [address]- Care Team Providers Care Distribution Estimator Name Role Phone Blair GODOY, Eugene Primary [facility] Phys[id number] Date[facility]14[facility] - 02/13/[address] [address]- Medications ARIPiprazole 20 mg oral tablet 1 tablet = 20 mg, By Mouth, Daily, # 30 tablet, 1 Refills, Maintenance, 01/08/21 15:02:00 EDT, Tablet, Partial fill upon patient request if the prescription is for a schedule II opioid drug. Start Date: 01/08/21 Status: Ordered buPROPion 150 mg/24 hours (XL) oral tablet, extended release 1 tablet = 150 mg, By Mouth, Every 24 hours, # 30 tablet, 1 Refills, Maintenance, 01/08/21 15:03:00EDT, ER Tablet, Partial fill upon patient request if the prescription is for a schedule II opioid drug. Start Date: 01/08/21 Stop Date: 02/07/21 Status: Ordered folic acid 0.8 mg oral tablet 1 tablet = 0.8 mg, By Mouth, Daily, # 100 tablet, 0 Refills, Maintenance, 01/08/21 15:04:00 EDT, Tablet, Partial fill upon patient request if the prescription is for a schedule II opioid drug. Start Date: 01/08/21 Status: Ordered pantoprazole 40 mg oral delayed release tablet 1 tablet = 40 mg, By Mouth, 2 times a day, # 60 tablet, 0 Refills, Maintenance, 01/08/21 15:00:00 EDT, CR Tablet Start Date: 01/08/21 Status: Ordered sertraline 50 mg oral tablet 1 tablet = 50 mg, By Mouth, Daily, # 30 tablet, 0 Refills, Maintenance, 01/08/21 14:46:00 EDT, Tablet, Partial fill upon patient request if the prescription is for a schedule II opioid drug. Start Date: 01/08/21 Status: Ordered traZODone 100 mg oral tablet 150 mg, 1.5, tablet, By Mouth, Daily at bedtime, # 60 tablet, Refills 0, Maintenance, 01/08/21 14:59:00 EDT, Partial fill upon patient request if the prescription is for a schedule II opioid drug. Start Date: 01/08/21 Stop Date: 02/07/21 Status: Ordered Xarelto 20 mg oral tablet 1 tablet = 20 mg, By Mouth, Daily in PM, # 30 tablet, 1 Refills, Maintenance, 01/08/21 15:01:00 EDT, Tablet, Partial fill upon patient request if the prescription is for a schedule II opioid drug. Start Date: 01/08/21 Stop Date: 02/07/21 Status: Ordered Problem List Condition Effective Dates Status Health Status Inform ant Depression(Confirmed) Active Factor V Leiden(Confirmed) Active Chronic GERD(Confirmed) Active Grief(Confirmed) 1 Active Personal history of DVT (beatrice p vein thrombosis)(Confirmed) Active Insomnia(Confirmed) Active Loss of weight(Confirmed) Active 1Loss of spouse Social History Social History Type Response Smoking Status Former smoker, quit more than 30 days ago; Other: Quit 1998; entered on: 01/08/21 Sex
--- OUTSIDE RECORDS SUMMARY | 2024-04-29 11:55 | XMS_ITS | Continuity of Care Document ---
Author Organization [facility] Address [address] [place] [address]- Care Team Providers Care Banana Loader Name Role Phone Eugene Pinto NP Primary Care Physician [phone] Encounter [facility] Date(s): 07/11/21 - 08/10/[address] [address]- Allergies, Adverse Reactions, Alerts No Known Medication Allergies Medications ARIPiprazole 20 mg oral tablet 1 [...] Date: 01/08/21 Stop Date: 02/07/21 Status: Ordered Compression Stockings See Instructions, # 2 each, Refills 3, Tot. Refills 3, Maintenance, surgical, calf length 20-30 mm Hgl Dx R60.0, 02/18/21 9:55:00 EDT, Supply Start Date: 02/18/21 Status: Ordered folic acid 0.8 mg oral [...] opioid drug. Start Date: 01/08/21 Status: Ordered traMADol 50 mg oral tablet 1 tablet = 50 mg, By Mouth, Every 6 hours, PRN as needed for pain, Do not mix with alcohol, # 10 tablet, 0 Refills, Maintenance, 04/23/21 12:33:00 EST, Tablet, [facility]/pharmacy #[id number], Partial fill upon patient request if the prescription is for a schedule... Start Date: 04/23/21 Status: Ordered traZODone 100 mg oral tablet [...] Effective Dates Status Health Status Inform ant A-fib(Confirmed) 1 Active Depression(Confirmed) Active Factor V Leiden(Confirmed) Active Chronic GERD(Confirmed) Active Grief(Confirmed) 2 Active Personal history of DVT (beatrice p vein thrombosis)(Confirmed) Active Insomnia(Confirmed) Active Major depressive disorder, r ecurrent, moderate(Confirmed) Active Loss of weight(Confirmed) Active 1Had a carioversion in the past Sometime before 2014 2Loss of spouse Social History Social History Type Response Smoking Status Former smoker, quit more than 30 days ago; Other: Quit 1998; entered on: 01/08/21 Sex
--- OUTSIDE RECORDS SUMMARY | 2024-04-29 11:55 | XMS_ITS | Continuity of Care Document ---
Author Organization [facility] Address [address] [place] [address]- Care Team Providers Care Head Track Coach Name Role Phone Eugene Pinto NP Primary Care Physician [phone] Encounter [facility] [id number] Date(s): 05/13/21 - 06/12/[address] [address]- Attending Physician: Chantal Andre Admitting Physician: AdmChantal alanis Referring Physician: AdmtrChantal Allergies, Adverse Reactions, Alerts No Known Medication [...] 0 Refills, Maintenance, 04/23/21 12:33:00 EST, Tablet, [facility] #[id number], Partial fill upon patient request [...]
--- OUTSIDE RECORDS SUMMARY | 2024-04-29 11:55 | XMS_ITS | Continuity of Care Document ---
Author Organization [facility] Address [address] [place] [address]- Care Team Providers Care Air Intelligence Officer Name Role Phone Blair GODOY, Eugene Primary Care Physician [phone] Encounter [facility] Date(s): 01/29/21 - 02/28/[address] [address]- Medications ARIPiprazole 20 mg oral tablet 1 [...]
--- OUTSIDE RECORDS SUMMARY | 2024-04-29 11:55 | XMS_ITS | Continuity of Care Document ---
Author Organization [facility] ter Address [address] [place] [address]- Care Team Providers Care Spinning Room Worker Name Role Phone Blair GODOY, Eugene Primary Care Physician Encounter [facility] [place] Date(s): 11/26/21 - 11/28/[address] [address] Discharge Disposition: A-D/C Home Attending Physician: Leann ROBLES, Dave Admitting Physician: Kenji Cruz MD Referring Physician: Not on Staff, Referring MD Allergies, Adverse Reactions, Alerts No Known Medication Allergies Immunizations Given and Recorded Vaccine Date Status Refusal Reason SARS-CoV-2 (COVID-19) mRNA-1273 vaccine 11/03/20 R ecorded SARS-CoV-2 (COVID-19) mRNA-1273 vaccine 10/06/20 R ecorded Medications acetaminophen 325 mg oral tablet 650 mg, 2, tablet, By Mouth, Every 6 hours, PRN, for 10 days, # 30 tablet, Refills 0, Tot. Refills 0, Acute 12/08/21 14:04:00 EDT, Pain , Mild, 11/28/21 14:04:00 EDT, Route to Pharmacy Electronically, [facility], Partial fill upon patien... Start Date: 11/28/21 Stop Date: 12/08/21 Status: Ordered ARIPiprazole 20 mg oral tablet 1 tablet [...] Stop Date: 02/07/21 Status: Ordered folic acid 1 mg oral tablet 1 mg, 1, tablet, By Mouth, Daily, # 30 tablet, Refills 0, Tot. Refills 0, Maintenance, 11/28/21 14:04:00 EDT, Route to Pharmacy Electronically, [facility], Partial fill upon patient request if the prescription is for a schedule II opioid... Start Date: 11/28/21 Stop Date: 12/28/21 Status: Ordered HYDROmorphone 4 mg oral tablet 4 mg, Tablet, By Mouth, Every 6 hours, PRN for Pain , Severe, Routine, 11/27/21 16:48:00 EDT Start Date: 11/27/21 Stop Date: 11/29/21 Status: Discontinued HYDROmorphone 4 mg oral tablet 1 tablet = 4 mg, By Mouth, Every 6 hours, PRN Pain , Severe, for 3 days, # 18 tablet, 0 Refills, Acute 12/01/21 14:04:00 EDT, 11/28/21 14:04:00 EDT, Tablet, [facility], Partial fill upon patient request if the prescription is for a sched... Start Date: 11/28/21 Stop Date: 12/01/21 Status: Ordered multivitamin Vitamin A and D oral capsule 1 capsule, By Mouth, Daily, # 30 capsule, 0 Refills, Maintenance, 11/28/21 14:04:00 EDT, Capsule, [facility], Partial fill upon patient request if the prescription is for a schedule II opioid drug., 1 capsule By Mouth Daily,x30 days, 173... Start Date: 11/28/21 Stop Date: 12/28/21 Status: Ordered pantoprazole 40 mg oral delayed release tablet 1 tablet = 40 mg, By Mouth, 2 times a day, # 60 tablet, 0 Refills, Maintenance, 01/08/21 15:00:00 EDT, CR Tablet Start Date: 01/08/21 Status: Ordered pyridoxine 50 mg oral tablet 50 mg, 1, tablet, By Mouth, Daily, for 30 days, # 30 tablet, Refills 0, Tot. Refills 0, Acute 12/28/21 14:05:00 EDT, 11/28/21 14:05:00 EDT, Route to Pharmacy Electronically, [facility],Partial fill upon patient request if the prescripti... Start Date: 11/28/21 Stop Date: 12/28/21 Status: Ordered sertraline 50 mg oral tablet 1 tablet = 50 mg, By Mouth, Daily, # 30 tablet, 0 Refills, Maintenance, 01/08/21 14:46:00 EDT, Tablet, Partial fill upon patient request if the prescription is for a schedule II opioid drug. Start Date: 01/08/21 Status: Ordered thiamine 100 mg oral tablet 100 mg, 1, tablet, By Mouth, 2 times a day, for 30 days, # 60 tablet, Refills 0, Tot. Refills 0, Acute 12/28/21 14:05:00 EDT, 11/28/21 14:05:00 EDT, Route to Pharmacy Electronically, [facility], Partial fill upon patient request if the p... Start Date: 11/28/21 Stop Date: 12/28/21 Status: Ordered traZODone 100 mg oral tablet [...] past Sometime before 2014 2Loss of spouse Results Orders for Microbiology Reports Name Date Urine Culture (URINE CULTURE) 11/25/21 Microbiology Reports TEST:Urine Culture STATUS:Auth (Verified) BODY SITE: SOURCE:URINE COLLECTED DATE/TIME:11/25/21 4:38 PM Urine Culture SPECIMEN DESCRIPTION : URINE SPECIAL REQUESTS : NONE CULTURE : NO GROWTH REPORT STATUS : FINAL 11/27/2021 Vital Signs Most recent to oldest [Reference Range]: 1 2 3 Height 173 cm (11/28/21 8:01 AM) 173 cm (11/27/21 7:46 PM) 173 cm (11/27/21 12:06 AM) Weight 78.45 kg (11/26/21 5:43 PM) 78.45 kg (11/26/21 11:44 AM) 77.5 kg (11/26/21 7:32 AM) Oxygen Saturation [94-100 %] 90 % *L* (11/28/21 8:01 AM) 94 % (11/27/21 7:46 PM) 95 % (11/27/21 3:00 PM) Pulse Rate [55-90 bpm] 61 bpm (11/28/21 8:01 AM) 50 bpm *L* (11/27/21 7:46 PM) 61 bpm (11/27/21 3:00 PM) Body Mass Index [18.5-24.99] 26.21 *H* (11/26/21 5:43 PM) 25.89 *H* (11/26/21 7:32 AM) 25.89 *H* (11/26/21 1:08 AM) Blood Pressure [90-138/55-84 mm Hg] 125/95mm Hg (11/28/21 8:01 AM) 139/78mm Hg *H* (11/27/21 7:46 PM) 127/76mm Hg (11/27/21 3:00 PM) Respiratory Rate [16-30 br/min] 26 br/min (11/28/21 8:01 AM) 18 br/min (11/28/21 7:56 AM) 20 br/min (11/27/21 10:49 PM) Temperature [96.8-100.4 DegF] 98.9 DegF (11/28/21 8:01 AM) 99.1 DegF (11/27/21 7:46 PM) 98.0 DegF (11/27/21 3:00 PM) Mode of Delivery (Oxygen) Room air (11/28/21 8:01 AM) Room air (11/27/21 7:46 PM) Room air (11/27/21 3:00 PM) Blood pressure sites Arm, left (11/28/21 8:01 AM) Arm, right (11/27/21 7:46 PM) Arm, right (11/27/21 3:00 PM) Temperature Route Oral (11/28/21 8:01 AM) Oral (11/27/21 7:46 PM) Oral (11/27/21 3:00 PM) Dry Weight 78.45 kg (11/26/21 5:43 PM) 77.5 kg (11/26/21 7:32 AM) 77.5 kg (11/26/21 1:08 AM) Weight Obtained Via Standing scale (11/26/21 5:43 PM) Standing scale (11/26/21 11:44 AM) Patient/family stated (11/25/21 3:38 PM) Dry Weight Obtained Via Standing scale (11/26/21 5:43 PM) Patient/family stated (11/25/21 3:38 PM) Social History Social History Type Response Smoking Status Former smoker, quit more than 30 days ago; Other: Quit 1998; entered on: 01/08/21 Sex
--- OUTSIDE RECORDS SUMMARY | 2024-04-29 11:55 | XMS_ITS | Patient Health Record ---
Author Organization [facility] Address [address] [place] [address] Care Team Providers Care Closing Agent Name Role Phone LONMikhail MANPREET Primary Care Provider [phone] RogerioangelesCurtis ahmadi Unavailable [phone] Allergies No Known Allergies Reason For Referral Reason Abnormal EMG-Neuropa thy and muscle atrophy Diagnosis 1 Abnormal electromyog bhavani [EMG] (R94.131) Referral Organization [facility] Referring Provider First Name MANPREET Referring Provider Last Name [facility] Referring Provider Speciality Internal edicine Referred Provider Specialty Neurology General Notes Referral faxed to Dr Dung Zhou's office at P: [phone]. Please call patient to schedule appointment.Mari Crystal 09/30/2023 01:16:31 PM > Referral Priority Routine Reason foot care with hx of neuropathy Diagnosis 1 Polyneuropathy, unsp ecified (G62.9) Referral Organization [facility] Referring Provider First Name MANPREET Referring Provider Last Name [facility] Referring Provider Speciality Internal edicine Referred Provider Specialty Podiatry General Notes Referral printed and mailed to patient.Monse Latraya 10/13/2023 07:40:02 AM > Referral Priority Routine Reason EMG ff up - Dr. Sonal watts Diagnosis 1 Polyneuropathy, unsp ecified (G62.9) Referral Organization [facility] Referring Provider First Name MANPREET Referring Provider Last Name [facility] Referring Provider Speciality Internal edicine Referred Provider Specialty Neurology General Notes Referral form comple herbert and faxed - Dept will call patient for scheduling.Monse Latraya 10/12/2023 04:52:41 PM > Referral Priority Routine Reason left knee pain Diagnosis 1 Pain in left ankle a nd joints of left foot (M25.572) Referral Organization [facility] Referring Provider First Name MANPREET Referring Provider Last Name GU Referring Provider Speciality Internal M edicine Referred Provider Specialty Orthopedic S urgery General Notes Referral faxed - Dep t will call patient for scheduling., Monse Todd 10/27/2023 03:29:06 PM > Referral Priority Routine Reason Evaluation and manag ement - Dr. Tenorio Diagnosis 1 Acute embolism and t hrombosis of unspecified deep veins of right distal lower extremity (I82.4Z1) Referral Organization [facility] Referring Provider First Name MANPREET Referring Provider Last Name LON Referring Provider Speciality Internal M edicine Referred Provider Specialty Hematology General Notes Referral sent to Dr. Tenorio - Office will call patient for scheduling., Shea, Todd 01/20/2024 08:22:36 AM > Referral Priority Routine Medications Medication SIG (Take, Route, Frequency, Duration) Notes Start Date End Date Status Lovenox 120 MG/0.8ML Inject subcutaneous ly Once [...] a day for 90 days 01/28/2023 Active predniSONE 20 MG 1 tablet Orally Once a day for 7 days 04/19/2024 Active Xarelto 20 MG 1 tablet with food O rally Once a day Active tiZANidine HCl 4 MG 1 tablet at bedtime as needed Orally Once a day for 30 days 04/19/2024 Active Lovenox Not-Taking buPROPion HCl ER (XL) 150 MG 1 tablet in the morning Orally Once a day for 90 days Active Mirtazapine 7.5 MG 1 tablets at bedtime Orally Once a day for 30 days 03/22/2024 Active ARIPiprazole 20 MG TAKE 1 TABLET BY SABRINA TH EVERY DAY FOR 30 DAYS for 90 Active Immunizations Vaccine Route Administration Date Status Comme nts COVID Moderna Unknown 10/06/2020 Administered COVID Moderna Unknown 11/03/2020 Administered COVID-19 Moderna Unknown 04/28/2022 Administered Fluzone QD IM Intramuscular 07/14/2022 Administered Shingrix Unknown 03/27/2021 Administered Social History Tobacco Use: Social History Observation Description Date Details (start date - stop date) Former Smoker NA - NA Tobacco Use/Smoking Question Answer Notes Are you a former smoker How long has it been since you last smoked? > 10 years Alcohol Screen (Audit-C) Question Answer Notes Did you have a drink containing alcohol in the p ast year? 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 Problem Alcohol dependence (83742522) Alcohol dependence, uncomplicated (F10.20) Active confirmed Problem Cannabis abuse (95116818) Cannabis abuse, uncomplicated (F12.10) Active confirmed Problem Mild recurrent major depression (86287441) Major depressive disorder, recurrent, mild (F33.0) Active confirmed Problem Generalized anxiety disorder (53451171) Generalized anxiety disorder (F41.1) Active confirmed Problem Insomnia (533082820) Insomnia, unspecified (G47.00) Active confirmed Problem Carpal tunnel syndrome (35609669) Carpal tunnel syndrome, right upper limb (G56.01) Active confirmed Problem Polyneuropathy (44374423) Polyneuropathy, unspecified (G62.9) Active confirmed Problem 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 vein (I82.531) Active confirmed Problem Gastro-esophageal reflux disease without esophagitis (393191641) Gastro-esophagea l reflux disease without esophagitis (K21.9) Active confirmed Problem Osteoarthritis of knee (291905832) Unilateral primary osteoarthritis, left knee (M17.12) Active confirmed Problem Calculus of kidney (28325403) Calculus of kidney (N20.0) Active confirmed Problem Paresthesia (finding) (13952446) Paresthesia of skin (R20.2) Active confirmed Problem Sciatica (84639799) Sciatica of right side (M54.31) Active confirmed Problem Seasonal allergy (249872186) Seasonal allergies (J30.2) Active confirmed Vital Signs Heart Rate 67 /min 04/19/2024 Temperature 98.4 degrees Fahrenheit 04/19/2024 Blood pressure diastolic 80 mm Hg 04/19/2024 Oximetry 97 % 04/19/2024 Height 68 in 04/19/2024 Blood pressure systolic 120 mm Hg 04/19/2024 Weight 155.5 lbs 04/19/2024 BMI 23.64 kg/m2 04/19/2024 Encounters Encounter Location Date Provider Diagnosis [address] [place] [address] 08/18/[address] [place] [address] 05/04/2023 CASE GUL Encounter for genera l adult medical examination without abnormal findings Z00.00 ; Generalized anxiety disorder F41.1 ; Gastro-esophageal reflux disease without esophagitis K21.9 ; Acquired coagulation factor deficiency D68.4 and Polyneuropathy, unspecified G62.[address] [place] [address] 10/12/2023 CASE [facility] Polyneuropathy, unspecified G62.9 ; Generalized anxiety disorder F41.1 ; Acquired coagulation factor deficiency D68.4 ; Alcohol dependence, uncomplicated F10.20 and Encounter for screening for malignant neoplasm of prostate Z12.[address] [place] [address] 10/22/2023 CASE GUL Pain in left knee M25.[address] [place] [address] 01/15/2024 CASE GUL Acute embolism and thrombosis of unspecified deep veins of right distal lower extremity I82.4Z1 ; Generalized anxiety disorder F41.1 ; Major depressive disorder, recurrent, mild F33.0 and Gastro-esophageal reflux disease without esophagitis K21.[address] [place] [address] 03/22/2024 CASE GUL Gastro-esophageal reflux disease without esophagitis K21.9 ; Generalized anxiety disorder F41.1 ; Paresthesia of skin R20.2 ; Polyneuropathy, unspecified G62.9 and Insomnia, unspecified G47.[address] [place] [address] 04/19/2024 Ghadeer Mazloum 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 vein I82.531 and Sciatica of right side M54.31 [facility] [address] [place] [address] 05/14/2023 [facility] [address] [place] [address] 05/14/2023 [facility] [address] [place] [address] 05/18/2023 [facility] [address] [place] [address] 05/19/2023 [facility] [address] [place] [address] 07/21/2023 [facility] [address] [place] [address] 08/11/2023 [facility] [address] [place] [address] 08/17/2023 [facility] [address] [place] [address] 08/20/2023 [facility] [address] [place] [address] 09/08/2023 [facility] [address] [place] [address] 09/30/2023 [facility] [address] [place] [address] 10/02/2023 [facility] Polyneuropathy, unspecified G62.9 [facility] [address] [place] [address] 10/14/2023 [facility] [address] [place] [address] 10/14/2023 [facility] [address] [place] [address] 10/16/2023 [facility] [address] [place] [address] 10/23/2023 [facility] [address] [place] [address] 10/27/2023 [facility] [address] [place] [address] 01/21/[address] [place] [address] 01/27/[address] [place] [address] 03/18/[address] [place] [address] 04/08/[address] [place] [address] 04/18/2024 [facility] Assessments Encounter Date Diagnosis (ICD Code) Assessment Notes Treat ment Notes Treatment Clinical Notes 05/04/2023 Encounter for genera l adult medical examination without abnormal findings (ICD-10 - Z00.00) 10/02/2023 Polyneuropathy, unspecified (ICD-10 - G62.9) 10/12/2023 Polyneuropathy, unspecified (ICD-10 - G62.9) 10/22/2023 Pain in left knee (ICD-10 - M25.562) 01/15/2024 Acute embolism and thrombosis of unspecified deep veins of right distal lower extremity (ICD-10 - I82.4Z1) 03/22/2024 Generalized anxiety disorder (ICD-10 - F41.1) 03/22/2024 Gastro-esophageal reflux disease without esophagitis (ICD-10 - K21.9) 04/19/2024 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 vein (ICD-10 - I82.531) 04/19/2024 Sciatica of right side (ICD-10 - M54.31) 03/22/2024 Paresthesia of skin (ICD-10 - R20.2) 10/12/2023 Generalized anxiety disorder (ICD-10 - F41.1) 01/15/2024 Generalized anxiety disorder (ICD-10 - F41.1) 05/04/2023 Generalized anxiety disorder (ICD-10 - F41.1) 05/04/2023 Gastro-esophageal reflux disease without esophagitis (ICD-10 - K21.9) 01/15/2024 Major depressive disorder, recurrent, mild (ICD-10 - F33.0) 10/12/2023 Acquired coagulation factor deficiency (ICD-10 - D68.4) 03/22/2024 Polyneuropathy, unspecified (ICD-10 - G62.9) 01/15/2024 Gastro-esophageal reflux disease without esophagitis (ICD-10 - K21.9) 03/22/2024 Insomnia, unspecifie d (ICD-10 - G47.00) 10/12/2023 Alcohol dependence, uncomplicated (ICD-10 - F10.20) 05/04/2023 Acquired coagulation factor deficiency (ICD-10 - D68.4) 05/04/2023 Polyneuropathy, unspecified (ICD-10 - G62.9) 10/12/2023 Encounter for screening for malignant neoplasm of prostate (ICD-10 - Z12.5) Plan Of Treatment Pending Test Test Name Order Date X ray : Knee, left 2 views 10/22/2023 GGTP 07/14/2022 Future Test Test Name Order Date CBC (COMPLETE BLOOD COUNT) 11/21/2021 COMPREHENSIVE METABOLIC PANEL 11/21/2021 LIPID PANEL 11/21/2021 TSH 11/21/2021 ALT (SGPT) 12/06/2021 AST (SGOT) 12/06/2021 BASIC METABOLIC PANEL 12/06/2021 ALT (SGPT) 05/04/2023 AST (SGOT) 05/04/2023 COMPREHENSIVE METABOLIC PANEL 05/04/2023 LIPID PANEL 05/04/2023 MICROALBUMIN, URINE 05/04/2023 PSA, SCREEN 05/04/2023 CBC, Platelet, No Differential-[id number] Lipid Panel-[id number] 10/12/2023 Comp. Metabolic Panel [id number] 2023 PSA (Serial Monitor)-[id number] 10/12/2023 Next Appt Details Provider Name:MANPREET LORENZO , 06/22/2024 01:00:00 PM, [address] [place] [address], [place], [address], Provider Name:MANPREET LORENZO , 09/28/2024 02:00:00 PM, [address] [place] [address], [place], [address], Insurance Providers Payer Name Payer Address Payer Phone Subscriber Number Group Number Insured Name Patient Relationship to Insured Coverage Start Date Coverage End Date [employer] [address] [place] [address] [id number] Moisés Robertson Self - patient is the insured 4 Medical (General) History Medical History History ICD Code Generalized anxiety disorder Major depressive disorder Mood Disorder Factor V Leiden History of cocaine use in the past Alcohol dependence Multiple DVT's Surgical History Surgery Date(Month/Year) Ahn rods placed, kyphosis, Arizon a cholecystectomy left knee surgery
--- OUTSIDE RECORDS SUMMARY | 2024-04-29 11:55 | XMS_ITS | Continuity of Care Document ---
Author Organization [facility] Address [address] [place] [address]- Care Team Providers Care Hunter Trapper Name Role Phone Blair GODOY, Eugene Primary Care Physician [phone] Encounter [facility] ACCT R [id number] Date(s): 04/23/21 - 05/23/21 [facility] [address] [place] [address]- Attending Physician: Chantal Andre Admitting Physician: Chantal Andre Referring Physician: AdmtrChantal Allergies, Adverse Reactions, Alerts [...] 0 Refills, Maintenance, 04/23/21 12:33:00 EST, Tablet, [facility]/pharmacy #[id number], Partial fill upon patient request [...]
--- OUTSIDE RECORDS SUMMARY | 2024-04-29 11:55 | XMS_ITS | Continuity of Care Document ---
Author Organization [facility] Address [address] [place] [address]- Care Team Providers Care Airfreight Operations Agent Name Role Phone Eugene Pinto NP Primary Care Physician [phone] Encounter [facility] Date(s): 04/25/21 - 05/25/[address] [address]- Allergies, Adverse Reactions, Alerts No Known Medication [...] 0 Refills, Maintenance, 04/23/21 12:33:00 EST, Tablet, [facility]/pharmacy #[id number], Partial fill upon patient request if [...]
--- OUTSIDE RECORDS SUMMARY | 2024-04-29 11:55 | XMS_ITS | Continuity of Care Document ---
Author Organization [facility] Address [address] [place] [address]- Care Team Providers Care Yarn Texture Machine Operator Name Role Phone Blair GODOY, Eugene Primary Care Physician [phone] Encounter [facility] Date(s): 01/30/21 - 03/02/[address] [address]- Attending Physician: Celia Jeong MD Admitting Physician: Celia Jeong MD Medications ARIPiprazole 20 mg oral tablet 1 [...]
--- OUTSIDE RECORDS SUMMARY | 2024-04-29 11:55 | XMS_ITS | Continuity of Care Document ---
Author Organization [facility] Address [address] [place] [address]- Care Team Providers Care Catcher Plug Name Role Phone Not on Staff, PCP Primary Care Physician Unavail able Encounter [facility] Date(s): 08/22/20 - 09/21/[address] [address]- Attending Physician: Chantal Andre Admitting Physician: Chantal Andre Referring Physician: Chantal Andre
--- OUTSIDE RECORDS SUMMARY | 2024-04-29 11:55 | XMS_ITS | Continuity of Care Document ---
Author Organization [facility] Address [address] [place] [address]- Care Team Providers Care Stereo Map Plotter Operator Name Role Phone Eugene Pinto NP Primary Care Physician Encounter [facility] [facility] ACCT [facility] [id number] Date(s): 03/08/21 - 04/07/[address] [address]- Attending Physician: Chantal Andre Admitting Physician: Chantal Andre Referring Physician: Chantal Andre Medications ARIPiprazole 20 mg oral tablet 1 [...]
--- OUTSIDE RECORDS SUMMARY | 2024-04-29 11:55 | XMS_ITS | Continuity of Care Document ---
Author Organization [facility] Address [address] [place] [address]- Care Team Providers Care Proofsheet Corrector Name Role Phone Blair GODOY, Eugene Primary Care Physician [phone] Encounter [facility] Date(s): 02/12/21 - 03/14/[address] [address]- Medications ARIPiprazole 20 mg oral tablet 1 [...]
--- OUTSIDE RECORDS SUMMARY | 2024-04-29 11:55 | XMS_ITS | Continuity of Care Document ---
Author Organization [facility] Address [address] [place] [address]- Care Team Providers Care Patternmaker All Around Name Role Phone Eugene Pinto NP Primary Care Physician [phone] Encounter [facility] Date(s): 07/04/21 - 08/03/[address] [address]- Allergies, Adverse Reactions, Alerts No Known Medication [...] 0 Refills, Maintenance, 04/23/21 12:33:00 EST, Tablet, [facility]/pharmacy #[id number], Partial fill upon patient request if [...]
--- OUTSIDE RECORDS SUMMARY | 2024-04-29 11:55 | XMS_ITS | Continuity of Care Document ---
Author Organization [facility] Address [address] [place] [address]- Care Team Providers Care Athletic Team Physician Name Role Phone Eugene Pinto NP Primary Care Physician [phone] Encounter [facility] Date(s): 04/22/21 - 05/22/[address] [address]- Allergies, Adverse Reactions, Alerts No Known Medication [...] 0 Refills, Maintenance, 04/23/21 12:33:00 EST, Tablet, [facility]/pharmacy #[id number], Partial fill upon patient request if [...]
--- OUTSIDE RECORDS SUMMARY | 2024-04-29 11:55 | XMS_ITS | Continuity of Care Document ---
Author Organization [facility] Address [address] [place] [address]- Care Team Providers Care Dye Range Feeder Name Role Phone Scott Miller MD Primary Care Physician [phone] Encounter [facility] [place] Date(s): 12/14/23 - 01/13/[address] [address]- Attending Physician: Chantal Andre Admitting Physician: Chantal Ander Referring Physician: AdmtrChantal Allergies, Adverse Reactions, Alerts No Known Medication Allergies Immunizations Given and Recorded Vaccine Date Status Refusal Reason SARS-CoV-2 (COVID-19) mRNA-1273 vaccine 11/03/20 R ecorded SARS-CoV-2 (COVID-19) mRNA-1273 vaccine 10/06/20 R ecorded Medications ARIPiprazole 20 mg oral tablet 1 [...] 11/28/21 14:04:00 EDT, Route to Pharmacy Electronically, [facility], Partial fill upon patient request if the prescription is for a schedule II opioid... Start Date: 11/28/21 Stop Date: 12/28/21 Status: Ordered multivitamin Vitamin A and D oral capsule 1 capsule, By Mouth, Daily, # 30 capsule, 0 Refills, Maintenance, 11/28/21 14:04:00 EDT, Capsule, [facility], Partial fill upon patient request [...] Date: 02/07/21 Status: Ordered Problem List Condition Confirmation Course Effective Dates Status Health St atus Informant A-fib 1 Confirmed Active Depression Confirmed Active Factor V Leiden Confirmed Active Chronic GERD Confirmed Active Grief 2 Confirmed Active Personal history of DVT (deep vein thrombosis) Confirmed Active Insomnia Confirmed Active Major depressive disorder, recurrent, moderate Confirmed Active Loss of weight Confirmed Active 1Had a carioversion in the past Sometime before 2014 2Loss of spouse Social History Social History Type Response Smoking Status Former smoker, quit more than 30 days ago; Other: Quit 1998; entered on: 01/08/21 Sex Patient Care team information Care Team Personnel Name: Scott Miller MD Position: [facility] Physician - Primary Care Member Role: PCP Address: Address: [address] [place] [address]- Care Team Related Persons Name: KATIE MADISON Address: home [place], [place] Name: YOUNG MATUTE Address: home [address] [place] [address]
--- OUTSIDE RECORDS SUMMARY | 2024-04-29 11:55 | XMS_ITS | Continuity of Care Document ---
Author Organization [facility] Address [address] [place] [address]- Care Team Providers Care Progressive Care Nurse Name Role Phone Eugene Pinto NP Primary Care Physician Encounter [facility] Date(s): 04/08/21 - 05/08/[address] [address]- Allergies, Adverse Reactions, Alerts No Known Medication [...] Maintenance, 04/23/21 12:33:00 EST, Tablet, [facility]/pharmacy #[id number], Partial fill upon patient request [...]
--- OUTSIDE RECORDS SUMMARY | 2024-04-29 11:56 | XMS_ITS | Continuity of Care Document ---
Author Organization [facility] Address [address] [place] [address]- Care Team Providers Care Deck Lid Fitter Name Role Phone Scott Miller MD Primary Care Physician [phone] [id number] Date(s): 12/08/23 - 01/13/[address] [address]- Attending Physician: Scott Miller MD Admitting Physician: Scott Miller MD Referring Physician: Scott Miller MD Allergies, Adverse Reactions, Alerts No Known [...] 11/28/21 14:04:00 EDT, Route to Pharmacy Electronically, [facility], Partial fill upon patient request if the prescription is for a schedule II opioid... Start Date: 11/28/21 Stop Date: 12/28/21 Status: Ordered multivitamin Vitamin A and D oral capsule 1 capsule, By Mouth, Daily, # 30 capsule, 0 Refills, Maintenance, 11/28/21 14:04:00 EDT, Capsule, [facility], Partial fill upon patient [...] Care team information Care Team Personnel Name: Angela ROBLES, Scott Young Position: [facility] Physician - Primary Care Member Role: PCP Address: Address: [address] [place] [address]- Care Team Related Persons Name: KATIE MADISON Address: home [place], [place] Name: YOUNG MATUTE Address: [place] [address]
--- OUTSIDE RECORDS SUMMARY | 2024-04-29 11:56 | XMS_ITS | Continuity of Care Document ---
Author Organization [facility] Address [address] [place] [address]- Care Team Providers Care Sensitometrist Name Role Phone Eugene Pinto NP Primary Care Physician Encounter [facility] Date(s): 04/10/21 - 05/10/[address] [address]- Allergies, Adverse Reactions, Alerts No Known Medication [...] 0 Refills, Maintenance, 04/23/21 12:33:00 EST, Tablet, [facility]/pharmacy #[id number], Partial fill upon patient request [...]
--- OUTSIDE RECORDS SUMMARY | 2024-04-29 11:56 | XMS_ITS | Continuity of Care Document ---
Author Organization [facility] Address [address] [place] [address]- Care Team Providers Care Buttermaker Helper Name Role Phone Eugene Pinto NP Primary Care Physician Encounter [facility] Date(s): 04/25/21 - 05/25/[address] [address]- Allergies, Adverse Reactions, Alerts No Known Medication [...] 0 Refills, Maintenance, 04/23/21 12:33:00 EST, Tablet, [facility]/pharmacy #[id number], Partial fill upon patient request [...] Grief(Confirmed) 2 Active Personal history of DVT (beartice p vein thrombosis)(Confirmed) Active Insomnia(Confirmed) Active Major depressive disorder, r ecurrent, moderate(Confirmed) Active Loss of weight(Confirmed) Active 1Had a carioversion in the past Sometime before 2014 2Loss of spouse Social History Social History Type Response Smoking Status Former smoker, quit more than 30 days ago; Other: Quit 1998; entered on: 01/08/21 Sex
--- OUTSIDE RECORDS SUMMARY | 2024-04-29 11:56 | XMS_ITS | Continuity of Care Document ---
Author Organization [facility] Address [address] [place] [address]- Care Team Providers Care Entertainment Director Name Role Phone Blair GODOY, Eugene Primary Care Physician [id number] Date(s): 01/14/21 - 02/13/[address] [address]- Medications ARIPiprazole 20 mg oral tablet 1 [...]
--- OUTSIDE RECORDS SUMMARY | 2024-04-29 11:56 | XMS_ITS | Continuity of Care Document ---
Author Organization [facility] Address [address] [place] [address]- Care Team Providers Care Records Management Analyst Name Role Phone Eugene Pinto NP Primary Care Physician [phone] Encounter [facility] Date(s): 05/03/21 - 06/02/[address] [address]- Allergies, Adverse Reactions, Alerts No Known Medication [...] 0 Refills, Maintenance, 04/23/21 12:33:00 EST, Tablet, [facility]/pharmacy #[id number], Partial fill upon patient request if [...]
--- OUTSIDE RECORDS SUMMARY | 2024-04-29 11:56 | XMS_ITS | Continuity of Care Document ---
Author Organization [facility] Address [address] [place] [address]- Care Team Providers Care Freight Air Brake Fitter Name Role Phone Not on Staff, PCP Primary Care Physician Unavail able Encounter [facility] Date(s): 08/22/20 - 09/21/[address] [address]-
--- OUTSIDE RECORDS SUMMARY | 2024-04-29 11:56 | XMS_ITS | Continuity of Care Document ---
Author Organization [facility] Address [address] [place] [address]- Care Team Providers Care Windows Desktop Support Name Role Phone Eugene Pinto NP Primary Care Physician Encounter [facility] Date(s): 05/14/21 - 06/13/[address] [address]- Allergies, Adverse Reactions, Alerts No Known Medication [...] 0 Refills, Maintenance, 04/23/21 12:33:00 EST, Tablet, [facility]/pharmacy #[id number], Partial fill upon patient request [...]
--- OUTSIDE RECORDS SUMMARY | 2024-04-29 11:56 | XMS_ITS | Continuity of Care Document ---
Author Organization [facility] Address [address] [place] [address]- Care Team Providers Care Cryptologist Name Role Phone Eugene Pinto NP Primary Care Physician [place] [facility] [place]): [place]23/21 - 04/30/21 [facility] [address] [place] [address]- Encounter Diagnosis Rib pain on left side(Discharge Diagnosis) - 04/23/21 Attending Physician: Jeffrey Johnson MD Referring Physician: Eugene Pinto NP Allergies, Adverse Reactions, Alerts No Known Medication [...] 0 Refills, Maintenance, 04/23/21 12:33:00 EST, Tablet, [facility]/pharmacy #[id number], Partial fill upon patient request if [...] past Sometime before 2014 2Loss of spouse Diagnosis Diagnosis Type Effective Dates Health Status Cl inical Service Informant Rib pain on left side Discharge Diagnosis 04/23/21 Vital Signs Most recent to oldest [Reference Range]: 1 Height 173.5 cm (04/23/21 10:44 AM) Oxygen Saturation [94-100 %] 99 % (04/23/21 10:44 AM) Pulse Rate [55-90 bpm] 99 bpm *H* (04/23/21 10:44 AM) Blood Pressure [90-138/55-84 mm Hg] 115/ 81mm Hg (04/23/21 10:44 AM) Respiratory Rate [16-30 br/min] 24 br/mi n (04/23/21 10:44 AM) Temperature [96.8-100.4 DegF] 98.9 DegF (04/23/21 10:44 AM) Mode of Delivery (Oxygen) Room air (04/23/21 10:44 AM) Blood pressure sites Arm, left (04/23/21 10:44 AM) Temperature Route Temporal (04/23/21 10:44 AM) Social History Social History Type Response Smoking Status Former smoker, quit more than 30 days ago; Other: Quit 1998; entered on: 01/08/21 Sex
--- OUTSIDE RECORDS SUMMARY | 2024-04-29 11:56 | XMS_ITS | Continuity of Care Document ---
Author Organization [facility] Address [address] [place] [address]- Care Team Providers Care Dimensional Integration Engineer Name Role Phone Blair GODOY, Eugene Primary Care Physician Encounter [facility] Date(s): 03/24/21 - 05/03/[address] [address] Attending Physician: Marsha Lockwood NP Admitting Physician: Marsha Lockwood NP Referring Physician: Marsha Lockwood NP Allergies, Adverse Reactions, Alerts No Known [...] 0 Refills, Maintenance, 04/23/21 12:33:00 EST, Tablet, [facility]/pharmacy #[id number], Partial fill upon patient request [...]
--- OUTSIDE RECORDS SUMMARY | 2024-04-29 11:56 | XMS_ITS | Continuity of Care Document ---
Author Organization [facility] ter Address [address] [place] [address]- Care Team Providers Care Front Tender Name Role Phone Scott Miller MD Primary Care Physician [phone] Encounter [facility] Date(s): 07/06/22 - 07/07/[address] [address]- Discharge Disposition: A-D/C Home Attending Physician: Aren Min MD Admitting Physician: Aren Min MD Referring Physician: Not on Staff, Referring [...] 11/28/21 14:04:00 EDT, Route to Pharmacy Electronically, [facility], Partial fill upon patient request if the prescription is for a schedule II opioid... Start Date: 11/28/21 Stop Date: 12/28/21 Status: Ordered MorPHINE Inj 2 mg, Injection, IV Push Slowly, Every 5 minutes for 3 doses/times, PRN for Pain , Moderate, and SBP greater than 100, Routine, 07/06/22 17:37:00 EST, Stop date Limited # of times Start Date: 07/06/22 Stop Date: 07/07/22 Status: Discontinued multivitamin Vitamin A and D oral capsule 1 capsule, By Mouth, Daily, # 30 capsule, 0 Refills, Maintenance, 11/28/21 14:04:00 EDT, Capsule, [facility], Partial fill upon [...] Sometime before 2014 2Loss of spouse Results Radiology Reports * Exam Date Time Procedure Performing Provider Status 07/06/22 4:[address] Ext Lower W/O Contrast Left Sole Curtis nd; Auth (Verified) Notes: (CT Ext Lower W/O Contrast Left) Reason For Exam: L knee pain, non traumatic injury;Edema RESULT: CT Ext Lower W/O Contrast Left CT Ext Lower W/O Contrast Left HX OF PRESENT ILLNESS: reports nontraumatic knee pain. unable to bear weight due to pain.; Reason: Edema; L knee pain, non traumatic injury; Clinical Question(s): Knee; TECHNIQUE: Helical CT without contrast formatted in 3 planes. Weight-based protocol using automatictube modulation was used to optimize exposure parameters. CTDIvol Body: 20.50 mGy, DLP Body: 628 mGy*cm. COMPARISONS: Left knee radiograph from earlier today. Ultrasound Doppler left lower extremity from earlier today. FINDINGS: Bones and joints: No fracture or dislocation is present. Diffuse tricompartmental degenerative changes. Calcification of the medial and lateral meniscus. Focal calcifications adjacent to the lateral femoral condyle, likely degenerative. Soft Tissues: Mild suprapatellar joint effusion. IMPRESSION: 1. No acute fracture. 2. Diffuse tricompartmental degenerative changes with suprapatellar joint effusion. I have personally reviewed the images and I agree with this report. WSN: [id number] Ordering Physician: Cooper Hdez Dictated By: Carisa Leal MD Dictated Date/Time: 07/06/22 6:27 pm Reviewed By: Ky Renee MD Signed By: Ky Renee MD Signed Date/Time: 07/06/22 6:32 pm Transcribed By: ALEA Transcribed Date/Time: 07/06/22 5:42 pm * Exam Date Time Procedure Performing Provider Status 07/06/22 3:59 PM US Doppler Ext Lower Venous Left Celia Sewell; Bill (Verified) Notes: (US Doppler Ext Lower Venous Left) Reason For Exam: Pain in limb;Other: RESULT: US Doppler Ext Lower Venous Left US Doppler Ext Lower Venous Left Hx of Present Illness: reports nontraumatic knee pain. unable to bear weight due to pain.; Reason: Other:; Pain in limb; Clinical Question(s): Thrombus COMPARISON: None IMAGING TECHNIQUE: Ultrasound of the veins from the groin through the calf was performed using grayscale, color, and spectral Doppler ultrasound assessing for complete compressibility and normal flowcharacteristics. FINDINGS: Common femoral vein: Patent. No thrombosis. Femoral vein: Patent. No thrombosis. Popliteal vein: Patent. No thrombosis. Gastrocnemius veins: The visualized portions are patent without evidence of thrombosis. Peroneal veins: The visualized portions are patent without evidence of thrombosis. Posterior tibial veins: The visualized portions are patent without evidence of thrombosis. Contralateral common femoral vein: Patent. No thrombosis. OTHER FINDINGS: None. IMPRESSION: No evidence of deep venous thrombosis. WSN: [id number] Ordering Physician: Cooper Hdez Dictated By: Sole Neumann MD Dictated Date/Time: 07/06/22 4:05 pm Reviewed By: Sole Neumann MD Signed By: Sole Neumann MD Signed Date/Time: 07/06/22 4:05 pm Transcribed By: ALEA Transcribed Date/Time: 07/06/22 3:58 pm * Exam Date Time Procedure Performing Provider Status 07/06/22 7:09 AM Knee 1 or 2 Views Left Karli Monterroso; Bill (Verified) Notes: (Knee 1 or 2 Views Left) Reason For Exam: Pain RESULT: Knee 1 or 2 Views Left Knee 1 or 2 Views Left, 2 views Hx of Present Illness: reports nontraumatic knee pain. unable to bear weight due to pain.; Reason: Pain; Clinical Question(s): Fracture COMPARISON: None. FINDINGS: There is a moderate-sized suprapatellar joint effusion. There are mild tricompartment osteoarthritic changes. 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 Questionable lucency at the lateral tibial plateau. IMPRESSION: 1. Moderate-sized suprapatellar joint effusion. 2. Questionable lucency at the lateral tibial plateau which may be artifactual or may represent a nondisplaced fracture. 3. Degenerative changes as detailed above. WSN: [id number] Ordering Physician: Reynaldo Ramirez Dictated By: Mariann Woo MD Dictated Date/Time: 07/06/22 7:51 am Reviewed By: Mariann Woo MD Signed By: Mariann Woo MD Signed Date/Time: 07/06/22 7:51 am Transcribed By: ALEA Transcribed Date/Time: 07/06/22 7:46 am Vital Signs Most recent to oldest [Reference Range]: 1 2 3 Weight 70.5 kg (07/06/22 6:45 AM) Oxygen Saturation [94-100 %] 98 % (07/07/22 12:47 AM) 97 % (07/06/22 8:30 PM) 96 % (07/06/22 2:08 PM) Pulse Rate [55-90 bpm] 65 bpm (07/07/22 12:47 AM) 72 bpm (07/06/22 8:30 PM) 71 bpm (07/06/22 2:08 PM) Blood Pressure [90-138/55-84 mm Hg] 117/75mm Hg (07/07/22 12:47 AM) 122/74mm Hg (07/06/22 8:30 PM) 135/79mm Hg (07/06/22 2:08 PM) Respiratory Rate [16-30 br/min] 18 br/min (07/07/22 12:47 AM) 18 br/min (07/06/22 8:30 PM) 18 br/min (07/06/22 5:24 PM) Temperature [96.8-100.4 DegF] 98.1 DegF (07/07/22 12:47 AM) 97.8 DegF (07/06/22 8:30 PM) 99.1 DegF (07/06/22 2:08 PM) Mode of Delivery (Oxygen) Room air (07/07/22 12:47 AM) Room air (07/06/22 8:30 PM) Room air (07/06/22 2:08 PM) Blood pressure sites Arm, right (07/07/22 12:47 AM) Arm, right (07/06/22 8:30 PM) Arm, left (07/06/22 2:08 PM) Temperature Route Oral (07/07/22 12:47 AM) Oral (07/06/22 8:30 PM) Oral (07/06/22 2:08 PM) Dry Weight 70.5 kg (07/06/22 6:45 AM) Social History Social History Type Response Smoking Status Former smoker, quit more than 30 days ago; Other: Quit 1998; entered on: 01/08/21 Sex XR Knee - left 1 or 2 Views * Dre , CIS S: Mariann Linares MD: VERIFY Event Display: Result: Authored Date: [id number] Knee 1 or 2 Views Left, 2 views Hx of Present Illness: reports nontraumatic knee pain. unable to bear weight due to pain.; Reason: Pain; Clinical Question(s): Fracture COMPARISON: None. FINDINGS: There is a moderate-sized suprapatellar joint effusion. There are mild tricompartment osteoarthritic changes. 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 Questionable lucency at the lateral tibial plateau. IMPRESSION: 1. Moderate-sized suprapatellar joint effusion. 2. Questionable lucency at the lateral tibial plateau which may be artifactual or may represent a nondisplaced fracture. 3. Degenerative changes as detailed above. WSN: [id number] Ordering Physician: Reynaldo Ramirez Dictated By: Mariann Woo MD Dictated Date/Time: 07/06/22 7:51 am Reviewed By: Mariann Woo MD Signed By: Mariann Woo MD Signed Date/Time: 07/06/22 7:51 am Transcribed By: ALEA Transcribed Date/Time: 07/06/22 7:46 am Note * Dre , CIS S: Sole Sommres MD: VERIFY Event Display: Result: Authored Date: [id number] US Doppler Ext Lower Venous Left Hx of Present Illness: reports nontraumatic knee pain. unable to bear weight due to pain.; Reason: Other:; Pain in limb; Clinical Question(s): Thrombus COMPARISON: None IMAGING TECHNIQUE: Ultrasound of the veins from the groin through the calf was performed using grayscale, color, and spectral Doppler ultrasound assessing for complete compressibility and normal flowcharacteristics. FINDINGS: Common femoral vein: Patent. No thrombosis. Femoral vein: Patent. No thrombosis. Popliteal vein: Patent. No thrombosis. Gastrocnemius veins: The visualized portions are patent without evidence of thrombosis. Peroneal veins: The visualized portions are patent without evidence of thrombosis. Posterior tibial veins: The visualized portions are patent without evidence of thrombosis. Contralateral common femoral vein: Patent. No thrombosis. OTHER FINDINGS: None. IMPRESSION: No evidence of deep venous thrombosis. WSN: [id number] Ordering Physician: Cooper Hdez Dictated By: Sole Neumann MD Dictated Date/Time: 07/06/22 4:05 pm Reviewed By: Sole Neumann MD Signed By: Sole Neumann MD Signed Date/Time: 07/06/22 4:05 pm Transcribed By: ALEA Transcribed Date/Time: 07/06/22 3:[address] Lower extremity WO contrast * BHSPowerscribe , CIS S: TRANSCRIBE Ky Renee MD S: VERIFY Carisa Leal MD A: SIGN Event Display: Result: Authored Date: [id number] CT Ext Lower W/O Contrast Left HX OF PRESENT ILLNESS: reports nontraumatic knee pain. unable to bear weight due to pain.; Reason: Edema; L knee pain, non traumatic injury; Clinical Question(s): Knee; TECHNIQUE: Helical CT without contrast formatted in 3 planes. Weight-based protocol using automatictube modulation was used to optimize exposure parameters. CTDIvol Body: 20.50 mGy, DLP Body: 628 mGy*cm. COMPARISONS: Left knee radiograph from earlier today. Ultrasound Doppler left lower extremity from earlier today. FINDINGS: Bones and joints: No fracture or dislocation is present. Diffuse tricompartmental degenerative changes. Calcification of the medial and lateral meniscus. Focal calcifications adjacent to the lateral femoral condyle, likely degenerative. Soft Tissues: Mild suprapatellar joint effusion. IMPRESSION: 1. No acute fracture. 2. Diffuse tricompartmental degenerative changes with suprapatellar joint effusion. I have personally reviewed the images and I agree with this report. WSN: [id number] Ordering Physician: Cooper Hdez Dictated By: Carisa Leal MD Dictated Date/Time: 07/06/22 6:27 pm Reviewed By: Ky Renee MD Signed By: Ky Renee MD Signed Date/Time: 07/06/22 6:32 pm Transcribed By: ALEA Transcribed Date/Time: 07/06/22 5:42 pm Patient Care team information Care Team Personnel Name: Scott Miller MD Position: [facility] Physician (General Medicine) Member Role: PCP Address: Address: [address] [place] [address]- Name: Angeline Vyas DO Position: [facility] Resident Member Role: ED Resident Address: Address: [address] [place] [address]- Name: Chris Gold Position: [facility] ED TA [facility] Member Role: Licensed Prosthetist/Orthotist Name: Aren Min MD Position: [facility] ED Medicine MD Member Role: Admitting Physician Address: Address: [address] [place] [address] [place] [address]- Name: Kishan Gracia RN Position: [facility] ED RN W/OE and Tasks Member Role: Patient Care Provider Care Team Related Persons Name: JUJU YOUNG Address: [place] [address]
== END 2024-04-22 14:56 | disposition home or self-care (01) ==
PROVIDERS: Physician Assistant Surgical; PCP Hospitalist; Visit Provider Psychiatry & Neurology Neurology
PROC: 009U3ZZ Drainage of Spinal Canal, Percutaneous Approach (ICD-10-PCS; CPT 62270; principal; 2024-04-22 13:00)
DX: G61.81 Chronic inflammatory demyelinating polyneuritis (principal)
CPT/HCPCS: 62328; 82042; 82945; 83916; 84157; 87015; 87070; 87205; 89051; J2003

== ENCOUNTER → 2024-04-22 13:00 | Outpatient (BNV) | payer MEDICARE, SELFPAY | PROVIDERS: PCP Hospitalist; Visit Provider Physician Assistant Surgical | DX: G62.9 Polyneuropathy, unspecified (principal) | CPT/HCPCS: 62328 ==